=== PATIENT | female | born 1990 | race Caucasian/White ===

== ENCOUNTER 2019-12-24 08:40 | Emergency (ER) | payer OTHER ==
[2019-12-24 08:46] VITALS: RESP 16; TEMP 98.5
[2019-12-24] MEDS ORDERED: IBUPROFEN 600 MG TAB PO STA (09:11)
[2019-12-24] MEDS ORDERED: HYDROmorphone 1 MG/ML 1 ML SYRINGE IM STA (09:11)
[2019-12-24] MEDS ORDERED: ORPHENADRINE 30 MG/ML 2 ML VIAL IM STA (09:11)
--- NOTE | 2019-12-24 09:29 | ED ---
Back Pain HPI - General Chief Complaint: Back Pain/Injury Stated Complaint: Back pain Time Seen by Provider: 12/24/19 08:55 Source: patient, RN notes reviewed Limitations: no limitations - History of Present Illness Initial Comments: This a 29-year-old female presents emergency Department chief complaint of low back pain. Patient's been having increasing back pain last 3-4 weeks. Patient saw PCP who ordered x-rays which did not show any significant abnormality. Patient was ordered physical therapy states that she started getting 2 weeks of it states pain worsened and had. Since in the pain continues to worsen. She denies any bowel, bladder incontinence or retention or saddle anesthesias. She states the pain is in her low back primarily right low back to rates across her left and down her right leg. She denies any lower extremity paresthesias denies any dysuria, hematuria no abdominal plain. She states the pain was so bad this morning she nearly fell to the ground. Patient states that she had an MRI years ago which showed degenerative disc disease, bulging disc. - Related Data Previous Rx's Medication Instructions Recorded Ibuprofen [Motrin] 600 mg PO Q8HR PRN #30 tab 12/24/19 Orphenadrine [Norflex] 100 mg PO Q12H #14 tablet.er 12/24/19 predniSONE 50 mg PO DAILY #5 tab 12/24/19 Allergies Allergy/AdvReac Type Severity Reaction Status Date / Time No Known Allergies Allergy Verified 12/24/19 08:46 Review of Systems ROS Statement: Those systems with pertinent positive or pertinent negative responses have been documented in the HPI. ROS Other: All systems not noted in ROS Statement are negative. Past Medical History Past Medical History: Asthma Additional Past Medical History / Comment(s): Back pain, DJD, sleep apnea History of Any Multi-Drug Resistant Organisms: None Reported Past Surgical History: Hernia Repair, Tubal Ligation, Uterine Ablation Past Psychological History: No Psychological Hx Reported Smoking Status: Current every day smoker Past Alcohol Use History: None Reported Past Drug Use History: None Reported General Exam General appearance: alert, in no apparent distress Head exam: Present: atraumatic, normocephalic, normal inspection Eye exam: Present: normal appearance, PERRL, EOMI. Absent: scleral icterus, conjunctival injection, periorbital swelling ENT exam: Present: normal exam, mucous membranes moist Neck exam: Present: normal inspection, full ROM. Absent: tenderness, meningismus, lymphadenopathy Respiratory exam: Present: normal lung sounds bilaterally. Absent: respiratory distress, wheezes, rales, rhonchi, stridor Cardiovascular Exam: Present: regular rate, normal rhythm, normal heart sounds. Absent: systolic murmur, diastolic murmur, rubs, gallop, clicks GI/Abdominal exam: Present: soft, normal bowel sounds. Absent: distended, tenderness, guarding, rebound, rigid Extremities exam: Present: other (Pedal pulses equal bilaterally tenderness full range of motion but increases pain in her back) Back exam: Present: tenderness, muscle spasm, paraspinal tenderness, vertebral tenderness. Absent: full ROM, CVA tenderness (R), CVA tenderness (L) Neurological exam: Present: alert, oriented X3, CN II-XII intact, reflexes normal. Absent: motor sensory deficit Skin exam: Present: warm, dry, intact, normal color. Absent: rash Course Vital Signs 12/24/19 08:44 Temperature 98.5 F Pulse Rate 90 Respiratory 16 Rate Blood Pressure 170/111 O2 Sat by Pulse 99 Oximetry Medical Decision Making - Medical Decision Making 29-year-old female presented for low back pain. Patient's been having duration of intractable abdominal back pain. CT was obtained given her symptoms which shows tiny disc old pain, no significant herniation and some mild degenerative changes. Patient's pain is improved. She is advised to follow-up with orthopedic back specialist and her PCP return parameters were discussed. Patient agrees to plan. Disposition Clinical Impression: Lumbar radicular pain Disposition: HOME SELF-CARE Condition: Stable Instructions (If sedation given, give patient instructions): Acute Low Back Pain (ED) Additional Instructions: Please return to the Emergency Department if symptoms worsen or any other concerns. Prescriptions: Ibuprofen [Motrin] 600 mg PO Q8HR PRN #30 tab PRN Reason: Pain Orphenadrine [Norflex] 100 mg PO Q12H #14 tablet.er predniSONE 50 mg PO DAILY #5 tab Is patient prescribed a controlled substance at d/c from ED?: No Referrals: Neisha Miller NPC [Primary Care Provider] - 1-2 days Time of Disposition: 10:26
--- NOTE | 2019-12-24 09:44 | CT ---
EXAMINATION TYPE: CT lumbar spine wo con DATE OF EXAM: 12/24/2019 9:37 AM COMPARISON: None. HISTORY: Intractable Low back pain CT DLP: 1463.4 mGycm Automated exposure control for dose reduction was used. Unenhanced CT of the lumbar spine was performed. Bone and soft tissue window settings are submitted as well as coronal and sagittal reconstructions. There are 5 lumbar-type vertebra. Lumbar spine shows satisfactory alignment without evidence of acute fracture or dislocation. Mild disc space narrowing L5-S1 level otherwise vertebral body heights and disc space heights are maintained. No large posterior disc herniations on sagittal images. Spinal can al preserved. No significant spurring is present. Review of axial images shows tiny central disc protrusion minimally effacing the anterior thecal sac L4-L5 level axial image 63. Otherwise axial images are within normal limits. Bilateral neural foramin a are patent. No pars defects are evident. Paraspinal muscle bulk is maintained. Normal-appearing lilibeth endix is seen best ascending from the low-lying cecum towards the right lower quadrant on coronal ant ges. IMPRESSION: Source of intractable low back pain not identified..
[2019-12-24] MEDS ORDERED: ACET/COD 300 MG/30 MG STARTER PACK 6 TAB BTL PO STA (10:24)
[2019-12-24 10:36] VITALS: BP 136/74; PULSE 76
== END 2019-12-24 10:35 | disposition home or self-care (01) ==
LOC: EC 08:40
DX: M47.26 Other spondylosis with radiculopathy, lumbar region (principal); F17.200 Nicotine dependence, unspecified, uncomplicated
CPT/HCPCS: 72131; 99284; 96372 ×2; J2360; J1170

== ENCOUNTER 2021-01-08 17:04 | Emergency (ER) | payer OTHER ==
[2021-01-08 17:10] VITALS: BP 151/90; PULSE 100; RESP 18; TEMP 100.3
--- NOTE | 2021-01-08 17:14 | ED ---
Headache HPI - General Chief Complaint: Headache Stated Complaint: head pressure Time Seen by Provider: 01/08/21 17:08 Source: patient Mode of arrival: EMS Limitations: no limitations - History of Present Illness Initial Comments: Patient presents the ED complaining of having worsening bilateral ear pain and bifrontal head "pressure" for the past 5 days or so. Patient states that she was diagnosed with bilateral ear infections and prescribed a course of prednisone by her PCP. She states that she has almost completed her course of steroids now without any improvement. Patient denies being prescribed any antibiotics. Patient admits to having sinus/nasal congestion as well. Patient denies trauma or injury, sudden onset pain, LOC, neck pain or stiffness, fever or chills, focal numbness/weakness/neuro deficit, visual changes, speech difficulty, sore throat, otorrhea, chest pain, dyspnea, cough, dizziness, abdominal pain, nausea/vomiting/diarrhea, dysuria or urinary symptoms, or any other symptoms or complaints. - Related Data Previous Rx's Medication Instructions Recorded Ibuprofen [Motrin] 600 mg PO Q8HR PRN #30 tab 12/24/19 Orphenadrine [Norflex] 100 mg PO Q12H #14 tablet.er 12/24/19 predniSONE 50 mg PO DAILY #5 tab 12/24/19 Azithromycin [Zithromax Z-pack (6 250 mg PO DIRECTED #6 tab 01/08/21 tabs)] Oxymetazoline 0.05% Nasl Garrison 2 spray EA NOSTRIL BID 3 Days #1 01/08/21 [Afrin 0.05% Nasal Garrison] bottle Allergies Allergy/AdvReac Type Severity Reaction Status Date / Time No Known Allergies Allergy Verified 01/08/21 17:11 Review of Systems ROS Statement: Those systems with pertinent positive or pertinent negative responses have been documented in the HPI. ROS Other: All systems not noted in ROS Statement are negative. Past Medical History Past Medical History: Asthma Additional Past Medical History / Comment(s): Back pain, DJD, sleep apnea History of Any Multi-Drug Resistant Organisms: None Reported Past Surgical History: Hernia Repair, Tubal Ligation, Uterine Ablation Past Psychological History: No Psychological Hx Reported Smoking Status: Current every day smoker Past Alcohol Use History: None Reported Past Drug Use History: None Reported General Exam Limitations: no limitations General appearance: alert, in no apparent distress Head exam: Present: atraumatic, normocephalic, other (Mild bifrontal tenderness with percussion) Eye exam: Present: normal appearance, PERRL, EOMI ENT exam: Present: normal oropharynx, mucous membranes moist, normal external ear exam, other (TMs appear erythematous and dull bilaterally) Neck exam: Present: other (Trachea is in midline). Absent: tenderness, meningismus Respiratory exam: Present: normal lung sounds bilaterally. Absent: respiratory distress, wheezes, rales, rhonchi, stridor Cardiovascular Exam: Present: regular rate, normal rhythm, normal heart sounds, other (Normal radial pulses bilaterally) GI/Abdominal exam: Present: soft. Absent: distended, tenderness, guarding Neurological exam: Present: alert, oriented X3, CN II-XII intact. Absent: motor sensory deficit Psychiatric exam: Present: normal affect, normal mood Skin exam: Present: warm, dry, intact, normal color Course Vital Signs 01/08/21 17:07 Temperature 100.3 F H Pulse Rate 100 Respiratory 18 Rate Blood Pressure 151/90 O2 Sat by Pulse 96 Oximetry Medical Decision Making - Medical Decision Making Given the patient's reported history and physical exam findings, I suspect that the patient's symptoms are likely secondary to bilateral otitis media and acute sinusitis. Patient is afebrile and has a normal neurological exam. I do not suspect an emergent medical condition at this time. Will discharge patient home with a course of antibiotics and decongestants. Patient was counseled about acute sinusitis and otitis media, and she was clearly explained return and follow-up instructions. Patient was instructed to follow up closely with her primary care provider. Patient was instructed to have a low threshold for return to the ED should her symptoms worsen or should she develop any new concerning symptoms. Patient feels comfortable with this plan. Disposition Clinical Impression: Bilateral otitis media, Acute sinusitis Disposition: HOME SELF-CARE Condition: Stable Instructions (If sedation given, give patient instructions): Sinusitis (ED), Ear Infection (ED) Additional Instructions: Return to the ER immediately should you develop new or worsening symptoms, a severe headache, neck pain or stiffness, chest pain, shortness of breath, feeling dizzy or faint, or new or worsening symptoms. Follow up closely with your primary care provider. Prescriptions: Oxymetazoline 0.05% Nasl Garrison [Afrin 0.05% Nasal Garrison] 2 spray EA NOSTRIL BID 3 Days #1 bottle Azithromycin [Zithromax Z-pack (6 tabs)] 250 mg PO DIRECTED #6 tab Is patient prescribed a controlled substance at d/c from ED?: No Referrals: Nonstaff,Physician [Primary Care Provider] - 1-2 days Time of Disposition: 17:37
== END 2021-01-08 17:43 | disposition home or self-care (01) ==
LOC: EC 17:04
DX: H66.93 Otitis media, unspecified, bilateral (principal); J01.90 Acute sinusitis, unspecified; F17.200 Nicotine dependence, unspecified, uncomplicated; J45.909 Unspecified asthma, uncomplicated
CPT/HCPCS: 99283